=== PATIENT | male | born 1985 | race Caucasian/White ===

== ENCOUNTER 2024-09-06 12:05 | Emergency (ER) | payer SELFPAY ==
[2024-09-06] MEDS: Ketorolac 60 MG/2 ML SDV IM ONE (12:35)
[2024-09-06] MEDS: Cyclobenzaprine 10 MG Tab PO ONE (12:43)
[2024-09-06 12:59] LABS: BASOPHILS PERCENT AUTO 0.8 % (0.0-1.0); EOSINOPHILS ABSOLUTE AUTO 0.2 K/mm3 (0.0-0.4); EOSINOPHILS PERCENT AUTO 3.5 % (0.0-6.0); HEMATOCRIT 61.7 % (42.0-52.0); IMMATURE GRAN ABSOLUTE AUTO 0.04 K/mm3 (0.00-0.05); IMMATURE GRAN PERCENT AUTO 0.8 % (0.0-0.4); LYMPHOCYTES ABSOLUTE AUTO 0.9 K/mm3 (1.0-4.8); LYMPHOCYTES PERCENT AUTO 16.8 % (24.0-44.0); MEAN CORPUSCULAR HEMOGLOBIN 27.4 pg (28.0-32.0); MEAN CORPUSCULAR HGB CONC 32.4 g/dl (32.0-36.0); MEAN CORPUSCULAR VOLUME 84.6 fl (83.0-99.0); MEAN PLATELET VOLUME 11.3 fl (9.4-12.4); MONOCYTES ABSOLUTE AUTO 0.4 K/mm3 (0.0-0.8); MONOCYTES PERCENT AUTO 7.8 % (0.0-8.0); NEUTROPHILS ABSOLUTE AUTO 3.6 K/mm3 (1.8-7.7); NEUTROPHILS PERCENT AUTO 70.3 % (41.0-71.0); PLATELET COUNT,PLT 181 K/mm3 (150-400); RED BLOOD CELL COUNT 7.29 M/mm3 (4.52-5.90); WHITE BLOOD CELL COUNT,WBC 5.11 K/mm3 (3.9-11.3)
[2024-09-06 13:36] LABS: A/G RATIO 1.4 (1-2); ALBUMIN 4.2 g/dl (3.4-5.0); BILIRUBIN TOTAL 0.4 mg/dL (0.2-1.0); CALCIUM 9.2 mg/dL (8.5-10.1); CREATININE 1.2 mg/dL (0.7-1.3); EST CRCL DRUG DOSING (CG) 89.77 mL/min; PROTEIN TOTAL,TP 7.3 g/dl (6.4-8.2)
[2024-09-06] MEDS: Lidocaine 4% Patch TOP PRN (14:22)
[2024-09-06] MEDS: Menthol 10%/Methyl Salicylate 30% 85 GM Tube TOP ONE (14:28)
[2024-09-06] MEDS ORDERED: Naloxone 0.4 MG/ML SDV IVPUSH PRN (14:42)
[2024-09-06] MEDS: HYDROmorphone 0.5 MG/0.5 ML Syringe IVPUSH ONE (14:52)
== END 2024-09-06 15:20 | disposition home or self-care (01) ==
LOC: JD.ED 12:05
DX: M62.838 Other muscle spasm (principal); M25.512 Pain in left shoulder
CPT/HCPCS: 36415; 72125; 73030; 80053; 84484; 85025; 93005; 96372; 96374; 99284; A9270; J1885; 93010